=== PATIENT | male | born 1980 | race Caucasian/White ===

== ENCOUNTER 2017-10-09 11:19 | Emergency (ER) | payer OTHER, SELFPAY ==
[2017-10-09 11:20] VITALS: BP 135/78; PULSE 123; RESP 13; TEMP 36.8; O2SAT 97; BMI 29.1
[2017-10-09] MEDS: Etomidate 20 MG/10 ML Vial IV (11:36)
[2017-10-09] MEDS: Rocuronium Bromide 50 MG/5 ML Vial IV (11:37)
[2017-10-09 11:39] VITALS: BP 123/84; PULSE 138; RESP 18; TEMP 36.8
[2017-10-09 11:56] LABS: Absolute Lymphocyte Count 1.75 X10^3/ul (0.83-4.51); Absolute Neutrophil Count 9.4 X10^3/uL (2.0-7.7); Basophil# 0.04 X10^3/uL; Basophil% 0.3 % (0-1); Eosinophil# 0.02 X10^3/uL; Eosinophils% 0.2 % (0-5); Hematocrit 43.4 % (40-54); Lymphocyte # 1.75 X10^3/ul (4.0); Mean Corp Hgb Conc 32.3 g/gl (32-36); Mean Corpuscular Hgb 29.4 pg (27.0-32.0); Mean Platelet Vol. 10.7 fl (6.2-12.0); Monocyte# 1.05 X10^3/uL; Monocyte% 8.4 % (0-10); Neutrophil # 9.44 X10^3/uL (2.7-7.7); Neutrophil % 75.7 % (47-70); POSITIVE COUNT NO; POSITIVE DIFFERENTIAL NO; POSITIVE MORPHOLOGY NO; Platelet Count 411 K/mm3 (150-450); Red Blood Count 4.77 M/mm3 (4.6-6.2); White Blood Count 12.5 K/mm3 (4.4-11.0)
--- NOTE | 2017-10-09 12:00 | RAD_ITS ---
STUDY: X-RAY - LEFT WRIST REASON FOR EXAM: Male, 37 years old. Deep laceration, suicide attempt TECHNIQUE: 3 view(s) of the wrist were obtained. COMPARISON: None. FINDINGS: Normal visualized distal radius and ulna. Normal radiocarpal articulation. Normal distal radioulnar articulation. Normal carpal bones. Normal carpal articulations. Normal carpometacarpal articulation of the thumb. Normal second through fifth carpometacarpal articulations. Normal visualized metacarpal bones. Diffuse soft tissue swelling RAD/Wrist min 3 Views IMPRESSION: No fracture or suspicious osseous lesion Diffuse soft tissue swelling Electronically Signed: Alexx Parra MD at 12:42 EST , Service support ,
--- NOTE | 2017-10-09 12:00 | RAD_ITS ---
STUDY: X-RAY CHEST REASON FOR EXAM: Male, 37 years old. Respiratory failure TECHNIQUE: Single AP portable view of the chest. COMPARISON: 09/13/2017 FINDINGS: Patient has been intubated since the previous study, tip of the ET tube is 2 cm above the jai. NG tube tip not seen but is below the diaphragm. EKG leads overlie the chest. Lungs are expanded, there is a lingular opacification with air bronchogram suggesting infiltrate. Follow-up recommended to assure resolution Normal size heart. Normal mediastinum and preeti. Normal visualized pulmonary arteries. Normal visualized aortic arch and descending thoracic aorta. Normal visualized thoracic spine. Normal visualized ribs, clavicles, and shoulders. There is no demonstrated abnormality of the visualized soft tissue structures of the upper abdomen. RAD/Chest 1 View (Portable) IMPRESSION: Lingular infiltrate, follow-up recommended to assure resolution Support lines and tubes as described, no demonstrated complication Electronically Signed: Alexx Parra MD at 12:30 EST , Service support ,
--- NOTE | 2017-10-09 12:01 | ED.VISSUMM ---
- ER Visit Summary Date of Service: 10/09/17 Chief Complaint: Inflicted wound left wrist History of Present Illness: The patient is a 37 M is a history of PTSD and depression who was brought to the ER by ambulance in the custody of police because of combativeness and self-inflicted wound left wrist. He is right-handed. He is floridly psychotic. He has saturated through 4 trauma dressings and paramedics described pulsatile bleeding. No other history is obtainable. Per the [place] police launch commander he he cut himself with a 4 inch knife with a fixed blade and commented the blade is razor sharp. He is able to extend the digits of his left hand unable to flex his index, long ring or little finger. Capillary refill is delayed. Prior to arrival patient received a total of 10 mg of Haldol. He was placed in four-point restraints immediately. He has dislodged/pulled his second peripheral line. Physical Examination: Patient is pale diaphoretic tachycardic and psychotic. He has pulled out 2 IVs. His physical exam is limited. Pupils are dilated but reactive. Heart is rapid without murmur, gallop or rub. Lungs revealed breath sounds bilateral. Abdomen is soft. There is no clonus or Babinski sign noted. He moves his right hand, right and left lower extremity. Test Results: [] Emergency Department Course and Treatment: Since 2 IVs were pulled out by patient and he is in critical condition elected to chemically restrain him with 50 mg of rocuronium and sedated with 20 mg of etomidate. He was easily oral tracheal intubated with a 8.0 endotracheal tube. OG was placed per me. Durant was placed per nursing staff. Since his heart rate has increased and he appears very pale 2 units of trauma blood were ordered. [facility] was initially called. Initially I was informed they could not fly. I did receive a call back and they are able to get patient. Initially spoke with the ER physician Seth tucker and Dr. Adryan Mtz who is on for hand; he did accept patient. He called back 10-50 minutes later and informed me that there are no OR is available and recommended another facility. [facility] transfer line was contacted. Patient been accepted by Dr. Vasyl Garcia and Dr. Loaiza the hand specialist and trauma surgeon respectively. Patient will receive 2 units of trauma blood. Since he is allergic to cephalexin he will receive 600 mg of Clindamycin IV piggyback. And tetanus immunization. Once patient was chemically restrained the trauma dressing applied by paramedics was removed. He has a 5.5 cm laceration volar surface left wrist approximately 3 cm from the palmar crease. There is arterial bleeding on the ulnar side. There is oozing on the radial side. 4 vertical mattress stitches was placed. Pressure dressing was then applied. Blood pressure cuff was deflated and no further bleeding noted. Capillary refill is 4 seconds in all digits of the left upper extremity. Treatment Plan: 1. Transfusion of 2 units of trauma blood 2. Oral tracheal intubation by RSI technique 3. Placement of orogastric tube by ED physician 4. Placement of Durant by nursing staff 5. Critical care time 37 minutes Disposition: Transfer by [facility] to [facility] trauma bay Impression: 1. Hemorrhagic shock 2. Complex vascular injury and flexor tendon injury left wrist 3. Intentional overdose (Risperdal) 4. Acute psychosis 5. Suicide attempt 6. Closure left wrist laceration This note was generated with [employer] dictation software. It may contain incorrect words, spelling, and punctuation that were not noted in review of the chart prior to signing ED Disposition - Plan for ED Patient: Chief Complaint: Suicidal [facility] [Primary Care Provider] -
[2017-10-09] MEDS: Propofol 10MG/Ml 1,000 MG/100 ML Bottle 5.062 MG CONT INF (12:07)
[2017-10-09] MEDS: Propofol 200 MG/20 ML Vial 50 MG IV BOLUS ×2 (12:10→12:25)
--- NOTE | 2017-10-09 12:20 | ED.DCSUM_ITS ---
- ER Visit Summary Date of Service: 10/09/17 Chief Complaint: Inflicted wound left wrist History of Present Illness: The patient is a 37 M is a history of PTSD and depression who was brought to the ER by ambulance in the custody of police because of combativeness and self-inflicted wound left wrist. He is right- handed. He is floridly psychotic. He has saturated through 4 trauma dressings and paramedics described pulsatile bleeding. No other history is obtainable. Per the police communications dispatcher he he cut himself with a 4 inch knife with a fixed blade and commented the blade is razor sharp. He is able to extend the digits of his left hand unable to flex his index, long ring or little finger. Capillary refill is delayed. Prior to arrival patient received a total of 10 mg of Haldol. He was placed in four-point restraints immediately. He has dislodged/pulled his second peripheral line. Physical Examination: Patient is pale diaphoretic tachycardic and psychotic. He has pulled out 2 IVs. His physical exam is limited. Pupils are dilated but reactive. Heart is rapid without murmur, gallop or rub. Lungs revealed breath sounds bilateral. Abdomen is soft. There is no clonus or Babinski sign noted. He moves his right hand, right and left lower extremity. Test Results: [] Emergency Department Course and Treatment: Since 2 IVs were pulled out by patient and he is in critical condition elected to chemically restrain him with 50 mg of rocuronium and sedated with 20 mg of etomidate. He was easily oral tracheal intubated with a 8.0 endotracheal tube. OG was placed per me. Durant was placed per nursing staff. Since his heart rate has increased and he appears very pale 2 units of trauma blood were ordered. [facility] was initially called. Initially I was informed they could not fly. I did receive a call back and they are able to get patient. Initially spoke with the ER physician Seth tucker and Dr. Adryan Mtz who is on for hand; he did accept patient. He called back 10-50 minutes later and informed me that there are no OR is available and recommended another facility. [facility] transfer line was contacted. Patient been accepted by Dr. Vasyl Garcia and Dr. Loaiza the hand specialist and trauma surgeon respectively. Patient will receive 2 units of trauma blood. Since he is allergic to cephalexin he will receive 600 mg of Clindamycin IV piggyback. And tetanus immunization. Once patient was chemically restrained the trauma dressing applied by paramedics was removed. He has a 5.5 cm laceration volar surface left wrist approximately 3 cm from the palmar crease. There is arterial bleeding on the ulnar side. There is oozing on the radial side. 4 vertical mattress stitches was placed. Pressure dressing was then applied. Blood pressure cuff was deflated and no further bleeding noted. Capillary refill is 4 seconds in all digits of the left upper extremity. Treatment Plan: 1. Transfusion of 2 units of trauma blood 2. Oral tracheal intubation by RSI technique 3. Placement of orogastric tube by ED physician 4. Placement of Durant by nursing staff 5. Critical care time 37 minutes Disposition: Transfer by [facility] to [facility] trauma bay Impression: 1. Hemorrhagic shock 2. Complex vascular injury and flexor tendon injury left wrist 3. Intentional overdose (Risperdal) 4. Acute psychosis 5. Suicide attempt 6. Closure left wrist laceration This note was generated with [employer] dictation software. It may contain incorrect words, spelling, and punctuation that were not noted in review of the chart prior to signing ED Disposition - Plan for ED Patient: Chief Complaint: Suicidal [facility] [Primary Care Provider] -
[2017-10-09 12:21] LABS: Anion Gap 14 (5-15); BUN 6 mg/dL (7-18); BUN/Creat Ratio 5.9 RATIO (10-20); Chloride 100 mmol/L (98-107); Creatinine, Serum 1.02 mg/dL (0.70-1.30); EST Glomerular Filtration Rate 88 mL/min (>60); Est Glom Filt Rate - Afr Amer 106 mL/min (>60); Estimated Creatinine Clearance 93.61 ml/min; Glucose 159 mg/dL (70-110); Potassium 2.9 mmol/L (3.5-5.1); Sodium Level 136 mmol/L (136-145)
[2017-10-09] MEDS: Diphth,Pertuss(Acell),Tet Vac 0.5 ML Vial IM (12:25)
[2017-10-09] MEDS: Clindamycin 600 MG/50 ML BAG 100 MG IV (12:35)
--- NOTE | 2017-10-09 12:40 | ED.RN ---
CALLED [facility] TO ALERT THEM THAT PT WAS BEING SHIPPED OUT OF OUR FACILITY BY [facility] TO [facility]. SPOKE WITH MARIA A WHOM STATED SHE WOULD PASS THE INFORMATION ALONG
[2017-10-09 12:54] LABS: Amphetamine Urine VISTA NEGATIVE (<1000 ng/mL); Barbiturate Urine VISTA NEGATIVE (< 200 ng/mL); Benzodiazepine Urine VISTA NEGATIVE (< 200 ng/mL); Cocaine Urine VISTA NEGATIVE (< 300 ng/mL); Ecstacy Urine VISTA NEGATIVE (< 500 ng/mL); Methadone Urine VISTA NEGATIVE (< 300 ng/mL); PCP Urine VISTA NEGATIVE (< 25 ng/mL); THC Urine VISTA POSITIVE (< 50 ng/mL); Vista UDS pH Range 6
--- NOTE | 2017-10-09 13:01 | ED.RN ---
PT ARRIVES WITH WALLET CONTAINING NO MONEY AND BOTTLE OF RISPERIDONE, 7 PILLS REMAINING IN BOTTLE. WALLET AND MEDICATION WAS GIVEN TO FAMILY PRIOR TO PT LEAVING FACILITY.
[2017-10-09 13:08] LABS: Alcohol, Blood (Medical)-Serum < 3.0 mg/dL
== END 2017-10-09 12:59 | disposition short-term general hospital (02) ==
LOC: ED 11:28
PROVIDERS: Emergency Provider Emergency Medicine
DX: T79.4XXA Traumatic shock, initial encounter (principal); S65.912A Laceration of unspecified blood vessel at wrist and hand level of left arm, initial encounter; S66.129A Laceration of flexor muscle, fascia and tendon of unspecified finger at wrist and hand level, initial encounter; T43.592A Poisoning by other antipsychotics and neuroleptics, intentional self-harm, initial encounter; F23 Brief psychotic disorder; S61.512A Laceration without foreign body of left wrist, initial encounter; F43.10 Post-traumatic stress disorder, unspecified; F32.9 Major depressive disorder, single episode, unspecified; X78.1XXA Intentional self-harm by knife, initial encounter; Y93.9 Activity, unspecified; Y92.9 Unspecified place or not applicable; Z79.899 Other long term (current) drug therapy
CPT/HCPCS: 12002; 31500; 71010; 73110; 80048; 80307; 80320; 85025; 86850; 86900; 86920; 86921; 86922; 90715; 96365; 96367; 96368; 96374; 96375; 99251; 99284; J7030; P9016; A4216; G0463; G0480

== ENCOUNTER 2018-05-22 12:25 | Emergency (ER) | payer OTHER, SELFPAY ==
[2018-05-22 12:26] VITALS: BP 131/89; PULSE 108; RESP 16; TEMP 36.9; O2SAT 98; BMI 28.5
--- NOTE | 2018-05-22 12:55 | RAD_ITS ---
STUDY: X-RAY CHEST REASON FOR EXAM: Male, 37 years old. Cough. Elevated white cell count. TECHNIQUE: PA and lateral views of the chest. COMPARISON: Comparison is made with prior study dated October 09, 2018. FINDINGS: Focal infiltrate in the lingular segment of the left upper lobe. Follow-up is recommended. There is no demonstrated pleural abnormality. Normal size heart. Normal mediastinum and preeti. Normal visualized pulmonary arteries. Normal visualized aortic arch and descending thoracic aorta. Normal visualized thoracic spine. Normal visualized ribs, clavicles, and shoulders. There is no demonstrated abnormality of the visualized soft tissue structures of the upper abdomen. RAD/Chest PA and Lateral IMPRESSION: Focal lingular infiltrate. Electronically Signed: Zachery Thompson MD at 14:25 EDT Tel [phone], Service support ,
[2018-05-22 13:38] LABS: Red Blood Cells-Urine 0 SEEN /hpf (0-5); White Blood Cells 0 SEEN /hpf (0-5)
[2018-05-22 13:40] LABS: Color, Urine Yellow (Yellow); Glucose, Dipstick Normal (Normal); Ketone-Dipstick 50 mg/dl (Negative); Leukocyte Esterase-Dipstick Negative /ul (Negative); Nitrite-Dipstick Negative (Negative); Occult Blood-Urine 25 /ul (Negative); Protein-Dipstick 15 mg/dl (Negative); Specific Gravity, Urine 1.025 (1.002-1.030); Urine Bilirubin Dipstick 1 mg/dL (Negative); Urine Clarity Sl. Cloudy (Clear); Urine Urobilinogen 1 mg/dl (Normal)
[2018-05-22 13:46] LABS: Absolute Lymphocyte Count 2.77 X10^3/ul (0.83-4.51); Absolute Neutrophil Count 10.1 X10^3/uL (2.0-7.7); Basophil# 0.07 X10^3/uL; Basophil% 0.5 % (0-1); Differential Indicated SCAN CRITERIA MET; Eosinophil# 0.49 X10^3/uL; Eosinophils% 3.2 % (0-5); Lymphocyte # 2.77 X10^3/ul (4.0); Mean Corp Hgb Conc 33.3 g/gl (32-36); Mean Corpuscular Volume 90.1 fL (80-94); Mean Platelet Vol. 10.2 fl (6.2-12.0); Monocyte# 1.61 X10^3/uL; Monocyte% 10.5 % (0-10); Neutrophil # 10.06 X10^3/uL (2.7-7.7); Neutrophil % 65.3 % (47-70); POSITIVE COUNT YES; POSITIVE DIFFERENTIAL YES; POSITIVE MORPHOLOGY YES; Platelet Count 335 K/mm3 (150-450); RBC Distribution Width CV 13.3 % (11.6-14.6); RBC Distribution Width SD 43.6 fl (35.1-43.9); Red Blood Count 5.33 M/mm3 (4.6-6.2); White Blood Count 15.4 K/mm3 (4.4-11.0)
[2018-05-22 13:51] LABS: Bacteria 1+ /hpf (None Seen); Squamous Epithelial Cells - UA 0-5 SEEN /hpf (0-5)
[2018-05-22 13:52] LABS: Hyaline Cast 0-5 SEEN /lpf (0-5); Mucous, Urine 1+ /hpf (<or=2+)
[2018-05-22 14:01] LABS: ALB/GLOB Ratio 0.9 RATIO (0.9-2.4); AST(SGOT) 42 U/L (15-37); Alanine Aminotransfer ALT/SGPT 99 U/L (16-61); Alkaline Phosphatase 108 U/L (45-117); Anion Gap 12 (5-15); BUN 11 mg/dL (7-18); BUN/Creat Ratio 13.9 RATIO (10-20); Calcium,Total 8.9 mg/dL (8.5-10.1); Chloride 104 mmol/L (98-107); Creatinine, Serum 0.79 mg/dL (0.70-1.30); EST Glomerular Filtration Rate 117 mL/min (>60); Est Glom Filt Rate - Afr Amer 142 mL/min (>60); Estimated Creatinine Clearance 137.68 ml/min; Globulin 4.4 g/dL (2.2-4.2); Glucose 89 mg/dL (74-106); Potassium 3.6 mmol/L (3.5-5.1); Protein, Total 8.4 g/dL (6.4-8.2); Sodium Level 138 mmol/L (136-145)
[2018-05-22 14:09] LABS: Differential Comment SCANNED
--- NOTE | 2018-05-22 14:11 | ED.VISSUMM ---
- ER Visit Summary Date of Service: 05/22/18 Chief Complaint: Elevated white blood cell count History of Present Illness: The patient is a 37 M who presents with an elevated white blood cell count. He had lab work done yesterday at the [place]. It was done just for screening purposes. His white blood cell count was reported as 32.2. Patient's been having some syncopal symptoms but no urinary symptoms. He denies any abdominal pain or fevers. He has had a slight cough. He is a smoker. The only medications he is on our psychiatric medications for which he has been prescribed and been taking for a long period of time. Physical Examination: Vital signs reviewed. HEENT exam unremarkable. Heart is regular rate and rhythm without murmurs. Lungs are clear to auscultation. Abdomen is soft and nontender. Extremities reveal no edema. Skin exam normal. Neurologic exam normal. Test Results: White blood cell count 15.4 today. Slight elevation of liver enzymes 49 and 42. Urinalysis normal. Chest x-ray reveals a lingular pneumonia Emergency Department Course and Treatment: Patient's white blood cell count went from 33.2 yesterday to 15.4 today. He does have a small lingular pneumonia. I will place him on azithromycin. He will follow up with the [place] Treatment Plan: [] Disposition: Discharge Impression: Community-acquired pneumonia This note was generated with [email or web address] dictation software. It may contain incorrect words, spelling, and punctuation that were not noted in review of the chart prior to signing ED Disposition - Plan for ED Patient: Chief Complaint: Abn Labs Referrals: [facility] [Primary Care Provider] -
--- NOTE | 2018-05-22 14:57 | ED.DEP ---
ED Disposition - Plan for ED Patient: Disposition: Home or Assisted Living Chief Complaint: Abn Labs Instructions: ED Pneumonia Adult Prescriptions: Azithromycin [Zithromax Z-Eber] 250 mg PO UD #1 box [facility] [Primary Care Provider] -
[2018-05-22 15:13] VITALS: BP 128/96; PULSE 107; RESP 18; O2SAT 98
[2018-05-23 14:53] LABS: Pathologist Review Reviewed
== END 2018-05-22 15:14 | disposition home or self-care (01) ==
PROVIDERS: Emergency Provider Emergency Medicine
DX: J18.9 Pneumonia, unspecified organism (principal); Z79.899 Other long term (current) drug therapy; F17.200 Nicotine dependence, unspecified, uncomplicated
CPT/HCPCS: 71046; 80053; 81001; 85025; 87040; 99283; A4216